=== PATIENT | male | born 1960 | race Caucasian/White ===

== ENCOUNTER → 2018-06-11 09:59 | Outpatient (CLI) | payer BC, SELFPAY ==
[2018-06-11 11:36] LABS: ALT 79 U/L (12-78); AST 42 U/L (15-37); CREATININE 1.04 mg/dL (0.70-1.30); Glucose 81 mg/dL (70-100)
== END ==
PROVIDERS: PCP Family Medicine; Visit Provider Family Medicine
DX: I10 Essential (primary) hypertension (principal); E74.39 Other disorders of intestinal carbohydrate absorption; K76.0 Fatty (change of) liver, not elsewhere classified
CPT/HCPCS: 36415; 82947; 82565; 84132; 84450; 84460

== ENCOUNTER → 2018-06-19 00:52 | Outpatient (CLI) | payer BC, SELFPAY ==
--- NOTE | 2018-06-19 07:30 | MERGE_ITS ---
*[facility]* *[facility]* [address] [place] [address] Date of study: 06/19/2018 Transthoracic Echocardiography M-mode, complete 2D, complete spectral Doppler, and color Doppler *STUDY CONCLUSIONS* Summary: 1. Left ventricle: The cavity size was dilated. Wall thickness was increased in a pattern of mild LVH. Systolic function was normal. The estimated ejection fraction was 55-60%. Wall motion was normal; there were no regional wall motion abnormalities. 2. Right ventricle: The cavity size was normal. Systolic function was normal. 3. Aortic valve: Possibly bicuspid (fusion of non-coronary and right coronary cups); moderately thickened, mildly calcified leaflets. Transvalvular velocity was increased. There was mild stenosis. There was moderate to severe regurgitation directed towards the mitral anterior leaflet. VTI ratio of LVOT to aortic valve: 0.41. Valve area (VTI): 1.5cm^2. 4. Aortic root: The aortic root was mildly dilated (41 mm). 5. Ascending aorta: The ascending aorta was mildly dilated (40 mm). 6. Inferior vena cava: The vessel was normal in size. The respirophasic diameter changes were in the normal range (greater than or equal to 50%), consistent with normal central venous pressure. *PATIENT PRESENTATION* Height: 172.7cm ((68in) ) S/D Pressure: 165 / 69 Weight: 92.5kg ((203.6lb) ) BSA: 2.13m^2 Test start time: 07:40 AM. Test stop time: 08:40 AM. PERFORMING Unknown ORDERING Merrill Hernandez REFERRING Merrill Hernandez PERFORMING [facility] CHARTER COACH DRIVER Lanie Barcenas, RT (R)(CT), [facility] *PROCEDURE DATA* Procedure information: The patient was identified by two identifiers. This study was interpreted by [facility]. Pertinent images and digital data are archived for permanent storage and are available for subsequent review. Comparison was made to the study of May 2016. Study status: Routine. Transthoracic echocardiography. M-mode, complete 2D, complete spectral Doppler, and color Doppler. A Transthoracic Echocardiogram was performed. Scanning was performed from the parasternal, apical, subcostal, and suprasternal notch acoustic windows. Images were obtained using an [id number] cardiac ultrasound machine. Image quality was adequate. Study completion: The patient tolerated the procedure well. There were no complications. History: PMH: Aortic root dilation. AI. *CARDIAC ANATOMY* Left ventricle: The cavity size was dilated. Wall thickness was increased in a pattern of mild LVH. Systolic function was normal. The estimated ejection fraction was 55-60%. Wall motion was normal; there were no regional wall motion abnormalities. Aortic valve: Possibly bicuspid (fusion of non-coronary and right coronary cups); moderately thickened, mildly calcified leaflets. Mobility was not restricted. Doppler: Transvalvular velocity was increased. There was mild stenosis. There was moderate to severe regurgitation directed towards the mitral anterior leaflet. VTI ratio of LVOT to aortic valve: 0.41. Valve area (VTI): 1.5cm^2. Indexed valve area (VTI): 0.7cm^2/m^2. Peak velocity ratio of LVOT to aortic valve: 0.4. Valve area (Vmax): 1.5cm^2. Indexed valve area (Vmax): 0.7cm^2/m^2. Mean velocity ratio of LVOT to aortic valve: 0.42. Valve area (Vmean): 1.6cm^2. Indexed valve area (Vmean): 0.7cm^2/m^2. Mean gradient (S): 18mm Hg. Peak gradient (S): 33.3mm Hg. Aorta: Aortic root: The aortic root was mildly dilated (41 mm). Ascending aorta: The ascending aorta was mildly dilated (40 mm). Mitral valve: Mildly calcified annulus. Mildly thickened leaflets. Mobility was not restricted. Doppler: Transvalvular velocity was within the normal range. There was no evidence for stenosis. There was no significant regurgitation. Valve area by pressure half-time: 3.1cm^2. Indexed valve area by pressure half-time: 1.5cm^2/m^2. Peak gradient (D): 4.6mm Hg. Left atrium: The atrium was at the upper limits of normal in size. Right ventricle: The cavity size was normal. Systolic function was normal. Pulmonic valve: Poorly visualized. Doppler: Transvalvular velocity was within the normal range. There was no evidence for stenosis. There was trivial regurgitation. Tricuspid valve: Structurally normal valve. Doppler: Transvalvular velocity was within the normal range. There was no evidence for stenosis. There was no significant regurgitation. Pulmonary artery: Poorly visualized. Systolic pressure could not be accurately estimated. Right atrium: The atrium was at the upper limits of normal in size. Pericardium: There was no pericardial effusion. Systemic veins: Inferior vena cava: The vessel was normal in size. The respirophasic diameter changes were in the normal range (greater than or equal to 50%), consistent with normal central venous pressure. Baseline ECG: Bradycardia. Measurements Left ventricle Value Reference LV ID, ED, PLAX (H) 6.4 cm 3.5 - 6.0 LV ID, ES, PLAX (H) 4.3 cm 2.1 - 4.0 LV PW thickness, ED, PLAX 1.2 cm LV end-diastolic volume, 1-p A2C 109 ml LV ejection fraction, 1-p A2C 59 % LV end-diastolic volume, 1-p A4C 111 ml LV ejection fraction, 1-p A4C 60 % LV e', lateral 0.071 m/sec LV E/e', lateral 15 LV e', medial 0.06 m/sec LV E/e', medial 18 LV e', average 0.066 m/sec LV E/e', average 16 Ventricular septum Value Reference IVS thickness, ED, PLAX 1.2 cm LVOT Value Reference LVOT ID, A-P 2.2 cm LVOT area 3.7 cm^2 LVOT peak velocity, S 1.16 m/sec LVOT mean velocity, S 0.85 m/sec LVOT VTI, S 29.1 cm LVOT peak gradient, S 5.4 mm Hg LVOT mean gradient, S 3.2 mm Hg Stroke volume (SV), LVOT DP 108 ml Stroke index (SV/bsa), LVOT DP 50 ml/m^2 Aortic valve Value Reference Aortic valve peak velocity, S 2.9 m/sec Aortic valve mean velocity, S 1.99 m/sec Aortic valve VTI, S 70.1 cm Aortic mean gradient, S 18 mm Hg Aortic peak gradient, S 33.3 mm Hg VTI ratio, LVOT/AV 0.41 Aortic valve area, VTI 1.5 cm^2 Velocity ratio, peak, LVOT/AV 0.4 Aortic valve area, peak velocity 1.5 cm^2 Velocity ratio, mean, LVOT/AV 0.42 Aortic valve area, mean velocity 1.6 cm^2 Aortic valve area/bsa, mean velocity 0.7 cm^2/m^2 Aortic regurg deceleration 297 cm/s^2 Aortic regurg pressure half-time 449 ms Aorta Value Reference Aortic root ID, ED 4.1 cm Ascending aorta ID, A-P, S 4.0 cm RVOT Value Reference RVOT VTI, S 13.1 cm Left atrium Value Reference LA ID, A-P, ES 3.4 cm LA ID/bsa, A-P 1.6 cm/m^2 <=2.2 LA area, ES, A4C 22 cm^2 8.8 - 23.4 LA area, ES, A2C 23 cm^2 LA volume/bsa, ES, 1-p A4C 32 ml/m^2 LA volume, ES, 2-p 65 ml LA volume/bsa, ES, 2-p 31 ml/m^2 LA/aortic root ratio 0.84 Mitral valve Value Reference Mitral E-wave peak velocity 1.08 m/sec Mitral A-wave peak velocity 0.98 m/sec Mitral deceleration time (H) 243 ms 150 - 230 Mitral pressure half-time 70 ms Mitral peak gradient, D 4.6 mm Hg Mitral E/A ratio, peak 1.1 Mitral valve area, PHT, DP 3.1 cm^2 Pulmonary veins Value Reference Pulmonary vein peak velocity, S 0.51 m/sec Pulmonary vein peak velocity, D 0.33 m/sec Pulmonary vein velocity ratio, peak, 1.53 S/D Pulmonary vein A-wave reversal peak 0.4 m/sec velocity Tricuspid valve Value Reference Tricuspid regurg peak velocity 2.5 m/sec Tricuspid peak RV-RA gradient 25.2 mm Hg Right atrium Value Reference RA area, ES, A4C 19.2 cm^2 8.3 - 19.5 Legend: (L) and (H) tab values outside specified reference range. I have personally reviewed the images and have reviewed and edited the reported findings. Electronically signed by Hamida Kent 06/19/2018 11:03
== END ==
PROVIDERS: PCP Family Medicine; Visit Provider Family Medicine
DX: I77.819 Aortic ectasia, unspecified site (principal); I06.2 Rheumatic aortic stenosis with insufficiency
CPT/HCPCS: 93306

== ENCOUNTER 2018-10-07 14:45 | Emergency (ER) | payer BC, SELFPAY ==
[2018-10-07 14:56] VITALS: BP 179/64; PULSE 45; RESP 20; TEMP 36.4; O2SAT 96
--- NOTE | 2018-10-07 15:17 | DI.CT_ITS ---
SYMPTOM/DIAGNOSIS: RT FLANK/RLQ ABD PAIN, R/O KIDNEY STONE RENAL COLIC CT: In the lower thorax bronchiectasis is identified. Incidental note is made of cardiomegaly. There is calcification in the aortic valve. There is no definite pleural effusion. There is no pericardial effusion. The liver is normal. The gallbladder is decompressed. The pancreas, spleen and adrenals are normal. There is a 5.3 x 4 mm calculus in the mid right ureter causing dilatation of the right ureter and the right collecting system. The right kidney is edematous. There are scattered diverticulum in the colon. There is no diverticulitis. There is nothing to suggest an acute appendix. There is no free air or free fluid in the intraperitoneal space. The bladder wall is somewhat thickened at 8 mm which is nonspecific regarding the possibility of inflammation or infection. The findings are likely on the basis of suboptimal distension. Correlation with the patient's clinical status is recommended,. There is no acute bony abnormality. The soft tissues are unremarkable. The abdominal aorta is intact with no evidence of an aneurysm. There are peripancreatic nodes measuring up to 3.7 x 1.1 cm The spleen is intact. A small splenule is identified. SUMMARY: A 5.3 x 4 mm right ureteral calculus is demonstrated with resultant right hydronephrosis. Note is made of obstructive changes involving the right kidney as well where there is evidence of nephric edema. Note is made of a peripancreatic lymph node measuring up to 3.7 x 1.1 cm. In addition, smaller peripancreatic lymph nodes are evident. The bladder wall is thickened. The finding is nonspecific and could represent inflammation or infection or unlikely but possible neoplastic or neurogenic bladder. Urology consult would be appropriate for further review of this patient.
--- NOTE | 2018-10-07 15:20 | W.ED.GENAD ---
Discharge Plan Disposition Patient Disposition: HOME Condition: Improving Discharge Details Chief Complaint: Abd Prob Clinical Impression: Right nephrolithiasis Primary Care Provider: Merrill Hernandez ED Provider: Mitzi Erickson Home Meds and New Rx's Prescriptions: New tamsulosin [Flomax] 0.4 mg capsule 0.4 mg PO DAILY Qty: 10 RF: 0 ondansetron 4 mg tablet,disintegrating 4 mg PO TID PRN (Reason: nausea and vomiting) Qty: 6 RF: 0 oxycodone 5 mg tablet 5 mg PO Q6H PRN (Reason: pain) Qty: 10 RF: 0 Continued aspirin [Aspirin Low-Strength] 81 MG tablet,chewable 1 tab PO DAILY RF: 0 cholecalciferol (vitamin D3) 2,000 UNIT tablet 2,000 unit PO DAILY RF: 0 omega-3 fatty acids-fish oil [Fish Oil] 1 EACH capsule 2 cap PO DAILY Qty: 60 RF: 5 pravastatin [Pravachol] 20 MG tablet 1 tab PO DAILY Qty: 90 RF: 3 Metoprolol Succinate [Toprol Xl] 50 MG TAB.ER.24H 50 mg PO DAILY Qty: 90 RF: 4 losartan-hydrochlorothiazide [Hyzaar] 1 EACH tablet 1 tab PO DAILY Qty: 90 RF: 3 Discharge Instructions Instructions: Kidney Stones (ED) Additional Instructions: Drink plenty of water. Take Motrin and Tylenol as needed and directed for pain. Take the oxycodone for pain not relieved with Motrin or Tylenol. Take the Flomax daily. Take the Zofran as needed and directed for any nausea or vomiting. You will receive a call from urology regarding follow-up in the next week. Return immediately to the emergency department any worsening or new concerning symptoms. Referrals: Tex De Leon MD [ [facility] STAFF PHYSICIAN] - Discharge Data Discharge Physician: Mitzi Erickson Medical Decision Making 58yo M w/ a h/o HTN and HLD w/ sudden onset R flank and RLQ abd pain. Nausea and dry heaving. BP hypertensive, HR 45. Afebrile. Pt on beta jassi. Suspect HTN due to pain. Pt appears significantly uncomfortable. Suspect kidney stone. May also be appendicitis, cholecystitis, SBO. Will place an IV, bolus ivf, toradol, zofran, labs, UA and CT renal colic and reassess. 1550 -- Pt feels better, pain improved after toradol. Pt to go to CT soon. 1615 -- Pain returned but now improved again. Dose of morphine was given. 1715 -- labs and imaging reviewed. Normal white blood cell count and creatinine. Potassium 3.2, which was repleted. Troponin negative. Urinalysis notes trace blood but no infection. CT notes a 5.3 x 4 mm right ureteral calculus causing dilation of the right ureter and right collecting system as well as an edematous kidney. Bladder wall is also measuring 8 mm which may represent inflammation or infection. CT also noted a 3 x 1 cm peripancreatic node. Pt was informed of all the CT findings and instructed to f/u with pcp regarding peripancreatic node as indicated. 1730 --results discussed with Dr. De Leon he recommends follow-up within 1 week. Recommends Flomax. Patient placed on urology f/u list. Patient feels much better and feels good to go home. Patient instructed to drink plenty of fluids. We will send home with oxycodone and Zofran tabs as well as prescriptions. Patient instructed to return here immediately with any concerns. Medical Records Medical records reviewed: Yes I reviewed the patient's medical records. Imaging Data Radiologic Study: Radiologist's impression: CT Abdomen and Pelvis Without Contrast EXAM DATE/TIME: 10/07/2018 3:20 PM FINDINGS: Lower thorax: Bronchiectasis There is calcification of the aortic valve annulus. ABDOMEN: Liver: Normal. No mass. Gallbladder and bile ducts: The gallbladder is decompressed Pancreas: Normal. No ductal dilation. Spleen: Normal. No splenomegaly. Adrenals: Normal. No mass. Kidneys and ureters: 5.3 x4 millimeter mid RIGHT ureteral calculus causes dilatation of the RIGHT ureter, and RIGHT collecting system. The RIGHT kidney is edematous. Stomach and bowel: Scattered diverticula of the colon. No diverticulitis Appendix: No evidence of appendicitis. PELVIS: Bladder: The bladder wall measures up to 8 mm. This is nonspecific and may represent inflammation or infection. Neoplastic process and neurogenic bladder are included in the differential. Reproductive: Unremarkable as visualized. ABDOMEN and PELVIS: Intraperitoneal space: Normal. No free air. No significant fluid collection. Bones/joints: No acute fracture. No dislocation. Soft tissues: Unremarkable. Vasculature: Normal. No abdominal aortic aneurysm. Lymph nodes: Peripancreatic node measures 3.7 x 1.1 cm (2:41). Additional smaller peripancreatic nodes. IMPRESSION: 1. 5.3 x4 millimeter mid RIGHT ureteral calculus causes dilatation of the RIGHT ureter, and RIGHT collecting system. The RIGHT kidney is edematous. 2. Peripancreatic node measures 3.7 x 1.1 cm (2:41). Additional smaller peripancreatic nodes. Recommend further evaluation 3. The bladder wall measures up to 8 mm. This is nonspecific and may represent inflammation or infection. Neoplastic process and neurogenic bladder are included in the differential. Recommend urology consult. Lab Data Lab results reviewed: Yes I reviewed the patient's lab results. Laboratory Tests Range/Units 10/07/18 10/07/18 10/07/18 15:30 15:30 16:55 WBC (4.4-10.8) k/cumm 9.79 RBC (4.50-6.00) m/cumm 5.43 Hgb (13.5-17.5) g/dL 16.5 Hct (40.0-50.0) % 47.5 MCV (80-95) fL 87.5 MCH (27.0-33.0) pg 30.4 MCHC (32.0-36.0) g/dL 34.7 RDW (11.8-14.1) % 14.5 H Plt Count (130-400) x1000/uL 229 MPV (8.0-11.0) fL 9.6 Immature Gran % 0.2 Neutrophils % 54.7 Lymphocytes % 30.2 Monocytes % 11.7 Eosinophils % 2.9 Basophils % 0.3 Absolute Neutrophils (1.2-6.7) k/cumm 5.35 Absolute Lymphocytes (1.2-3.4) k/cumm 2.96 Absolute Monocytes (0.11-0.7) k/cumm 1.15 H Absolute Eosinophils (0.0-0.7) k/cumm 0.28 Absolute Basophils (0.0-0.2) k/cumm 0.03 Sodium (136-145) mmol/L 141 Potassium (3.5-5.1) mmol/L 3.2 L Chloride (98-107) mmol/L 103 Carbon Dioxide (21.0-32.0) mmol/L 26.6 Anion Gap (3-11) mmol/L 11.4 H BUN (7-18) mg/dL 22 H Creatinine (0.70-1.30) mg/dL 0.99 Estimated GFR/1.73 m2 (mL/min/1.73m2) >= 60.00 Glucose (70-100) mg/dL 190 H Calcium (8.5-10.1) mg/dL 9.4 Magnesium (1.8-2.4) mg/dL 2.0 Total Bilirubin (0.2-1.0) mg/dL 0.9 AST (15-37) U/L 49 H ALT (12-78) U/L 98 H Alkaline Phosphatase (46-116) U/L 76 Troponin I (0.00-0.06) ng/mL < 0.02 Total Protein (6.4-8.2) g/dL 7.7 Albumin (3.4-5.0) g/dL 3.7 Urine Color (Yellow) Yellow Urine Clarity Clear Urine pH (5-8) 5.5 Ur Specific [place] (1.005-1.025) >= 1.030 H Urine Protein (Negative) mg/dL Negative Urine Ketones (Negative) mg/dL Trace H Urine Blood (Negative) Trace-intact H Urine Nitrite (Negative) Negative Urine Bilirubin (Negative) Negative Urine Urobilinogen (Up TO 0.2) EU/dL 0.2 Ur Leukocyte Esterase (Negative) Negative Urine RBC (0-2) 0-2 Urine WBC (0-5) HPF Negative Ur Epithelial Cells (Negative) HPF Negative Urine Crystals (Negative) HPF Negative Urine Bacteria (Negative) HPF Rare Urine Casts (Negative) LPF Negative Urine Mucus (Negative) Negative Urine Other (Negative) Negative Ur Culture Indicated? No Urine Glucose (Negative) mg/dL Negative HPI General Mode of arrival: ambulatory. Date/Time Provider Initiated Documentation: 10/07/18 15:02. Limitations to Documentation: no limitations. Information obtained by: patient. HPI Narrative: Pt is a 58yo M w/ a h/o HTN/HLD who presents to the ED w/ a c/o sudden onset of R flank and RLQ abdominal pain since 90 minutes ago. Pt states he was sitting watching tv when the pain started. He states the pain is constant, sharp, aching and 10/10. Pt did not take anything for pain. Pt also admits to nausea and dry heaving 4 times. He states he has chronic diarrhea for years and that his last bowel movement was 3 hours ago and within normal limits. He denies fever, chest pain, sob, urinary symptoms. Denies known h/o kidney stones. Related Data Home Medications Medication Instructions Recorded Confirmed aspirin [Aspirin Low-Strength] 1 tab PO DAILY 02/05/13 10/07/18 cholecalciferol (vitamin D3) 2,000 unit PO DAILY 05/09/16 10/07/18 omega-3 fatty acids-fish oil [Fish 2 cap PO DAILY #60 tab-cap 05/09/16 10/07/18 Oil] pravastatin [Pravachol] 1 tab PO DAILY #90 tab 04/09/18 10/07/18 losartan-hydrochlorothiazide 1 tab PO DAILY #90 tab NS 06/14/18 10/07/18 [Hyzaar] ondansetron 4 mg PO TID PRN #6 tab 10/07/18 oxycodone 5 mg PO Q6H PRN #10 tab 10/07/18 tamsulosin [Flomax] 0.4 mg PO DAILY #10 cap 10/07/18 Previous Rx's Medication Instructions Recorded pravastatin [Pravachol] 1 tab PO DAILY #90 tab 04/09/18 losartan-hydrochlorothiazide 1 tab PO DAILY #90 tab NS 06/14/18 [Hyzaar] ondansetron 4 mg PO TID PRN #6 tab 10/07/18 oxycodone 5 mg PO Q6H PRN #10 tab 10/07/18 tamsulosin [Flomax] 0.4 mg PO DAILY #10 cap 10/07/18 Allergies Allergy/AdvReac Type Severity Reaction Status Date / Time lisinopril AdvReac Mild COUGH Unverified 06/11/18 09:26 doxycycline AdvReac Unknown NAUSEA Unverified 06/11/18 09:26 General Stated Complaint: Abd Prob ANGEL: 3 Review of Systems Review of Systems All systems reviewed & are unremarkable except as noted in HPI and below Constitutional Reports as per HPI, Denies chills and Denies fever(s) Eyes Denies blurry vision ENT Denies dizziness, Denies sore throat and Denies throat swelling Cardiovascular Denies chest pain and Denies dyspnea Respiratory Denies dyspnea Gastrointestinal Reports abdominal pain, Reports diarrhea (chronic, no change), Reports nausea and Denies vomiting Genitourinary Denies hematuria, Denies dysuria, Reports flank pain, Denies testicular mass, Denies testicular pain, Denies urinary frequency and Denies urinary urgency Musculoskeletal Reports back pain and Denies numbness Integumentary/Breasts Denies lesions and Denies rash Neurologic Denies dizziness and Denies numbness Allergic/Immunologic Denies throat swelling [facility] Family History Mother No problems noted. Father Heart disease Sister No problems noted. Sister No problems noted. Brother No problems noted. Grandfather Heart disease Stroke Grandmother No problems noted. Other Depression Exam Const General: cooperative, healthy appearing and no acute distress HENMT Head: normal to inspection Face and sinus: normal facial exam Eyes General: appearance normal, both eyes and all related structures EOM: EOM intact bilaterally Neck Neck: normal visual inspection and No submandibular swelling Lymphatic: no lymphadenopathy noted Chest Chest: normal inspection of the chest and no tenderness Resp Effort & Inspection: normal respiratory effort and able to speak in complete sentences Auscultation: clear to auscultation bilaterally Cardio Rate: regular rate Rhythm: regular rhythm GI Inspection: distended (states this is his baseline, no change) and obesity Palpation: no hernias, no masses, not rigid and nontender Auscultation: normal bowel sounds Male General Exam: Yes normal external exam Scrotum: scrotum normal Testes: normal, no testicular mass, no testicular swelling and no testicular tenderness Back/Spine/Pelvis Back: no CVA tenderness Thoracic/Lumbar Spine: thoracic and lumbar spine normal to inspection Pelvis: no pain with anterior-posterior compression Skin General skin exam: no rashes or lesions noted Neuro General: alert, awake and oriented x3 Cognition: normal cognition Speech: speech normal Motor: muscle tone normal throughout Sensory Exam: no sensory deficits noted Extrem General: normal to inspection, full ROM, normal capillary refill, no calf tenderness bilaterally and no edema Psych Appearance: grossly normal Mental Status: mental status grossly normal Speech and Movement: speech and movement normal Affect: normal affect Course Vital Signs Temperature 97.5 F L 10/07/18 14:56 Pulse 45 L 10/07/18 14:56 Respiratory Rate 20 10/07/18 14:56 Blood Pressure 179/64 H 10/07/18 14:56 Pulse Oximetry 96 10/07/18 14:56 Temperature 97.5 F L 10/07/18 14:56 Temperature Source Skin 10/07/18 14:56 Pulse 45 L 10/07/18 14:56 Respiratory Rate 20 10/07/18 14:56 Blood Pressure 179/64 H 10/07/18 14:56 Blood Pressure Position Sitting 10/07/18 14:56 Pulse Oximetry 96 10/07/18 14:56 Oxygen Delivery Method Room Air 10/07/18 14:56 Oxygen Flow Rate 0 10/07/18 14:56 Pain Level 9 10/07/18 14:56
[2018-10-07] MEDS: Ketorolac 30 MG/ML VIAL IVP (15:28)
[2018-10-07] MEDS: Ondansetron 4 MG/2 ML VIAL IVP (15:29)
[2018-10-07] MEDS: Normal Saline 1,000 ML 1000 ML IV (15:29)
[2018-10-07 15:45] LABS: Abs Immature Grans 0.02 k/cumm (0.0-0.09); Absolute Basophil Count 0.03 k/cumm (0.0-0.2); Absolute Eosinophil Count 0.28 k/cumm (0.0-0.7); Absolute Lymphocyte Count 2.96 k/cumm (1.2-3.4); Absolute Monocyte Count 1.15 k/cumm (0.11-0.7); Absolute Neutrophil Count 5.35 k/cumm (1.2-6.7); Basophils % 0.3; Eosinophils % 2.9; HCT 47.5 % (40.0-50.0); HGB 16.5 g/dL (13.5-17.5); Immature Grans % 0.2; Lymphocytes % 30.2; Mean Corp. HGB Concentration 34.7 g/dL (32.0-36.0); Mean Corpuscular Hemoglobin 30.4 pg (27.0-33.0); Mean Corpuscular Volume 87.5 fL (80-95); Mean Platelet Volume 9.6 fL (8.0-11.0); Monocytes % 11.7; Neutrophils % 54.7; Platelet Count 229 x1000/uL (130-400); RBC 5.43 m/cumm (4.50-6.00); RBC Distribution Width 14.5 % (11.8-14.1); White Blood Cell Count 9.79 k/cumm (4.4-10.8)
[2018-10-07 16:01] LABS: ALT 98 U/L (12-78); AST 49 U/L (15-37); Albumin 3.7 g/dL (3.4-5.0); Alkaline Phosphatase 76 U/L (46-116); Anion Gap 11.4 mmol/L (3-11); BUN 22 mg/dL (7-18); Bilirubin, Total 0.9 mg/dL (0.2-1.0); CO2 26.6 mmol/L (21.0-32.0); CREATININE 0.99 mg/dL (0.70-1.30); Calcium 9.4 mg/dL (8.5-10.1); Chloride 103 mmol/L (98-107); Glucose 190 mg/dL (70-100); Potassium 3.2 mmol/L (3.5-5.1); Sodium 141 mmol/L (136-145); Total Protein 7.7 g/dL (6.4-8.2)
[2018-10-07 16:03] LABS: Troponin I < 0.02 ng/mL (0.00-0.06)
[2018-10-07 16:17] VITALS: BP 175/60; PULSE 58; RESP 14; O2SAT 95
--- NOTE | 2018-10-07 16:18 | NUR.NOTE ---
pain improved , nausea improved, will contoinue to moniotr Nursing Note:
[2018-10-07] MEDS: Potassium Chloride 20 MEQ TABCR 40 MEQ PO (16:55)
[2018-10-07 17:00] LABS: Bilirubin Negative (Negative); Blood Trace-intact (Negative); Clarity Clear; Glucose Negative (Negative); Ketones Trace mg/dL (Negative); Leukocyte Esterase Negative (Negative); Nitrite Negative (Negative); Specific Gravity >= 1.030 (1.005-1.025); Urobilinogen 0.2 EU/dL (Up TO 0.2); pH 5.5 (5-8)
--- NOTE | 2018-10-07 17:06 | DI.VRAD_ITS ---
EXAM: CT Abdomen and Pelvis Without Contrast EXAM DATE/TIME: 10/07/2018 3:20 PM CLINICAL HISTORY: 58 years old, male; Pain; Abdominal pain; Localized; Right lower quadrant (rlq); Patient HX: R flank pain/rlq pain; Additional info: R/O kidney stone, appendicitis TECHNIQUE: Axial computed tomography images of the abdomen and pelvis without contrast. Coronal and sagittal reformatted images were created and reviewed. COMPARISON: No relevant prior studies available. FINDINGS: Lower thorax: Bronchiectasis There is calcification of the aortic valve annulus. ABDOMEN: Liver: Normal. No mass. Gallbladder and bile ducts: The gallbladder is decompressed Pancreas: Normal. No ductal dilation. Spleen: Normal. No splenomegaly. Adrenals: Normal. No mass. Kidneys and ureters: 5.3 x4 millimeter mid RIGHT ureteral calculus causes dilatation of the RIGHT ureter, and RIGHT collecting system. The RIGHT kidney is edematous. Stomach and bowel: Scattered diverticula of the colon. No diverticulitis Appendix: No evidence of appendicitis. PELVIS: Bladder: The bladder wall measures up to 8 mm. This is nonspecific and may represent inflammation or infection. Neoplastic process and neurogenic bladder are included in the differential. Reproductive: Unremarkable as visualized. ABDOMEN and PELVIS: Intraperitoneal space: Normal. No free air. No significant fluid collection. Bones/joints: No acute fracture. No dislocation. Soft tissues: Unremarkable. Vasculature: Normal. No abdominal aortic aneurysm. Lymph nodes: Peripancreatic node measures 3.7 x 1.1 cm (2:41). Additional smaller peripancreatic nodes. IMPRESSION: 1. 5.3 x4 millimeter mid RIGHT ureteral calculus causes dilatation of the RIGHT ureter, and RIGHT collecting system. The RIGHT kidney is edematous. 2. Peripancreatic node measures 3.7 x 1.1 cm (2:41). Additional smaller peripancreatic nodes. Recommend further evaluation 3. The bladder wall measures up to 8 mm. This is nonspecific and may represent inflammation or infection. Neoplastic process and neurogenic bladder are included in the differential. Recommend urology consult Dictated and Authenticated by: Gianna Reveles MD. Ordering:[id number] Cartagena MD
[2018-10-07 17:08] LABS: Bacteria Rare HPF (Negative); Epithelial Cells Negative HPF (Negative); Other Cells Negative (Negative); RBC 0-2 (0-2); WBC Negative HPF (0-5)
[2018-10-07 17:09] LABS: C & S Indicated? No; Casts Negative LPF (Negative); Crystals Negative HPF (Negative); Mucus Negative (Negative)
[2018-10-07 17:36] VITALS: BP 187/73; PULSE 66; RESP 16; O2SAT 94
--- NOTE | 2018-10-07 17:37 | NUR.NOTE ---
patient medicated per MD order, will continue to monitor Nursing Note:
[2018-10-07] MEDS: MORPHine 10 MG/ML VIAL 4 MG IVP (17:51)
[2018-10-07] MEDS: Tamsulosin 0.4 MG CAPCR PO (18:40)
[2018-10-07] MEDS: oxyCODONE 5 MG TAB 15 MG PO (18:41)
[2018-10-07] MEDS: Ondansetron O.D.T. 4 MG TABEF PO (18:42)
--- NOTE | 2018-10-07 18:43 | NUR.NOTE ---
patient medicated per MD order, home meds sent home with patient Nursing Note:
--- NOTE | 2018-10-07 18:57 | NUR.NOTE ---
IV dc'd, patient received discharge and follow up instruction Nursing Note:
== END 2018-10-07 18:57 | disposition home or self-care (01) ==
PROVIDERS: Emergency Provider Physician Assistant; PCP Family Medicine
DX: N20.1 Calculus of ureter (principal); I10 Essential (primary) hypertension
CPT/HCPCS: 80053; 96361; 96374; 96375; 99284; 74176; 81003; 81015; 83735; 84484; 85025; J1885; J2270; J2405

== ENCOUNTER 2018-10-24 16:24 | Outpatient (REF) | payer BC, SELFPAY ==
[2018-10-24 17:14] LABS: Bilirubin Negative (Negative); Blood Trace-intact (Negative); Clarity Clear; Glucose Negative (Negative); Ketones Negative (Negative); Leukocyte Esterase Negative (Negative); Nitrite Negative (Negative); Urobilinogen 0.2 EU/dL (Up TO 0.2); pH 6.5 (5-8)
[2018-10-24 17:26] LABS: Bacteria Rare HPF (Negative); Crystals Negative HPF (Negative); Epithelial Cells Rare HPF (Negative); Mucus Negative (Negative); WBC 0-2 HPF (0-5)
[2018-10-24 17:27] LABS: C & S Indicated? C&S Done As Ordered
== END 2018-10-24 16:44 ==
LOC: LBN 16:24
PROVIDERS: PCP Family Medicine; Visit Provider Nurse Practitioner Gerontology
DX: R31.9 Hematuria, unspecified (principal)
CPT/HCPCS: 81003; 81015; 87086

== ENCOUNTER 2018-11-25 00:46 | Outpatient (CLI) | payer BC, SELFPAY ==
--- NOTE | 2018-11-25 06:40 | DI.CT_ITS ---
SYMPTOM/DIAGNOSIS: LYMPH NODES AROUND PANCREAS ON U/S, ENLARGED LYMPH NODES R59.9 CT ABDOMEN AND PELVIS: Comparison is made with 07 Oct 2018. There is respiratory motion at the lung bases. The heart is enlarged, unchanged. The liver shows fatty infiltration. The gallbladder, spleen and pancreas are unremarkable. The previous exam mentioned lymph nodes around the head of the pancreas. These nodes have decreased in size when compared with the previous exam, consistent with reactive lymph nodes. The appendix appears normal. There is mild diverticulosis but no evidence of diverticulitis. Prostate calcifications are seen. The bladder is unremarkable. The aorta is normal in diameter. IMPRESSION: Interval decrease in size of the previously noted lauren-pancreatic lymph nodes, consistent with reactive lymph nodes. No acute abnormality is identified on today's exam.
[2018-11-25] MEDS: Breeza Beverage 473 ML BTL PO ×2 (06:57→06:58)
[2018-11-25] MEDS: Omnipaque 350 MG/ML 50 ML BTL PO (06:58)
[2018-11-25 07:47] LABS: CREATININE 1.05 mg/dL (0.70-1.30)
[2018-11-25 07:51] LABS: ALT 81 U/L (12-78)
[2018-11-25] MEDS: Omnipaque 350 MG/ML 100 ML BTL IJ (08:07)
== END 2018-11-25 01:06 ==
PROVIDERS: PCP Family Medicine; Visit Provider Family Medicine
DX: R59.0 Localized enlarged lymph nodes (principal); I51.7 Cardiomegaly; K57.90 Diverticulosis of intestine, part unspecified, without perforation or abscess without bleeding; E78.5 Hyperlipidemia, unspecified
CPT/HCPCS: 36415; 74177; 82565; 84460; J3490; Q9967

== ENCOUNTER 2019-06-17 09:59 | Outpatient (CLI) | payer BC, SELFPAY ==
[2019-06-17 13:31] LABS: Anion Gap 9.8 mmol/L (3-11); BUN 21 mg/dL (7-18); CO2 29.2 mmol/L (21.0-32.0); CREATININE 1.01 mg/dL (0.70-1.30); Calcium 9.2 mg/dL (8.5-10.1); Calculated LDL 130 mg/dL; Chloride 103 mmol/L (98-107); Cholesterol 192 mg/dL (50-200); Glucose 95 mg/dL (70-100); HDL Cholesterol 42 mg/dL (40-60); Potassium 4.2 mmol/L (3.5-5.1); Sodium 142 mmol/L (136-145); Triglyceride 102 mg/dL (30-150)
[2019-06-18 10:25] LABS: PSA, Screening 0.6 ng/ml (0-4.5)
== END 2019-06-17 10:19 ==
PROVIDERS: PCP Family Medicine; Visit Provider Family Medicine
DX: E78.00 Pure hypercholesterolemia, unspecified (principal); I10 Essential (primary) hypertension; Z12.5 Encounter for screening for malignant neoplasm of prostate
CPT/HCPCS: 36415; 80048; 80061; 83721; 84153

== ENCOUNTER 2019-08-06 01:45 | Outpatient (CLI) | payer BC, SELFPAY ==
--- NOTE | 2019-08-06 10:25 | DI.US_ITS ---
APPROVED REPORT EXAM: Comprehensive 2D, Doppler, and color-flow Echocardiogram Patient Location: Out-Patient Indoor Landscape Architect: L[facility] Barcenas [facility] ([facility]) Indications: aortic regurgitation non rheumatic i35.1 Left Ventricle Left ventricle is mildly dilated (LVEDD=6.1cm). The left ventricular systolic function is normal. The left ventricular ejection fraction is within the normal range. Mild concentric left ventricular hype rtrophy. There is normal LV segmental wall motion. Diastolic function is indeterminate LVEF is estima lázaro to be 55-60%. Right Ventricle The right ventricle is normal size. The right ventricular systolic function is normal. Atria Left atrium is dilated. The right atrium size is normal. Aortic Valve Aortic valve is possibly bicuspid. Aortic valve leaflets are mildly thickened. Mild aortic stenosis, mean gradient of 17.7mmHg Moderate to severe aortic regurgitation (reversal of flow in the descending aorta, VC=7mm) Mitral Valve There is mild mitral annular calcification. Mitral valve leaflets are mildly thickened. No evidence o f mitral valve stenosis. Mild mitral regurgitation. Tricuspid Valve The tricuspid valve is normal in structure. Trace tricuspid regurgitation. Unable to assesss PA press ure due to inadequate TR jet. Pulmonic Valve Pulmonic valve is not well visualized. Great Vessels Aortic root is dilated (3.9cm). The ascending aorta is mildly dilated. IVC is normal in size and rachna apses >50% with inspiration. Pericardium There is no pericardial effusion. 2D Dimensions IVSd 1.13 cm M: 0.6-1.2 LV EDV A2C 115.60 mL PWd 1.22 cm M: 0.6 - 1.2 LV EDV A4C 186.00 mL LVDd 6.14 cm M: 4.2 - 5.9 LA Volume Index A2C 26.96 mL/m2 LVDs 3.84 cm M: 2.5 - 4.0 LA Volume Index A4C 40.37 mL/m2 Aortic Root 4.10 cm M: 3.1 - 3.7 LA Volume Index Biplane 35.70 mL/m2 RA Area A4C 16.95 cm2 LA Area A4C 25.55 cm2 LVOT 2.21 cm (M/F) 1.5-2.5 LA Area A2C 19.29 cm2 Ascending Aorta 3.95 cm M: 2.6 - 3.4 EF AP4 54.78 % LVEF (Teich) 66.42 % EF AP2 59.78 % LVEF (Sam's) 53.69 % M: 52 - 72 EF BP 53.69 % LV Volume 109.32 mL M: 62 - 150 LV Volume Index 53.06 mL/m2 M: 34 - 74 FS 37.38 % LV Diastology E/A Ratio 1.4 MED E' 0.07 (<0.07 m/s) LV E/e MED 16.17 (>14) LAT E' 0.06 (<0.1 m/s) LV E/e LAT 17.01 (>14) Pulm Vein s 0.50 m/s PV S/D Ratio 1.22 Pulm Vein d 0.41 m/s Pulm Vein a 0.39 m/s Aortic Valve LVOT Area 3.84 cm2 LVOT Peak Arvin. 1.12 m/s LVOT Mean Arvin. 0.85 m/s JASON Vmax 0.00 m/s LVOT Peak Gr. 4.98 mmHg JASON Vmax Index 0.68 cm2/m2 LVOT Mean Gr. 3.11 mmHg JASON Mean Arvin. 0.00 m/s LVOT VTI 0.30 m JASON Mean Arvin. Index 0.80 cm2/m2 AoV Peak Arvin. 3.06 (0.5-1.3 m/s) AoV Mean Arvin. 1.97 m/s AO Peak GR. 37.35 mmHg AO Mean GR. 17.72 (<5 mmHg) AO VTI 0.70 (0.18-0.25 m) JASON (VTI) 1.40 (2.5-4.5 cm2) JASON (VTI) Index 0.79 cm/m2 Vena Contraca 0.67 cm Mitral Valve MV E Max Arvin. 1.07 (0.4-1.3 m/s) MV A Velocity 0.78 (0.4-1.3 m/s) E/A Ratio 1.37 MV Decel. Time 206.69 (160-240 msec) MV PHT 59.94 msec MVA PHT 3.67 cm2 Tricuspid Valve TR P. Velocity 2.04 m/s TV Regurg Vmax 2.04 m/s TR P. Gradient 16.60 mmHg Conclusion Left Ventricle : Left ventricle is mildly dilated (LVEDD=6.1cm). Mild concentric left ventricular hyp ertrophy. Diastolic function is indeterminate There is normal LV segmental wall motion. LVEF is estim ated to be 55-60%. Right Ventricle : The right ventricle is normal size. The right ventricular systolic function is norm al. Atria : Left atrium is dilated. The right atrium size is normal. Aortic Valve : Aortic valve is possibly bicuspid. Aortic valve leaflets are mildly thickened. Mild ao rtic stenosis, mean gradient of 17.7mmHg Moderate to severe aortic regurgitation (reversal of flow in the descending aorta, VC=7mm) Mitral Valve : There is mild mitral annular calcification. Mitral valve leaflets are mildly thickene d. Mild mitral regurgitation. No evidence of mitral valve stenosis. Tricuspid Valve : The tricuspid valve is normal in structure. Trace tricuspid regurgitation. Unable t o assesss PA pressure due to inadequate TR jet. Pulmonic Valve : Pulmonic valve is not well visualized. Great Vessels : Aortic root is dilated (3.9cm). IVC is normal in size and collapses >50% with inspira tion. Compared to echo dated 05/2018 the ventricle is now dilated in the setting of moderate to severe AI.
== END 2019-08-06 02:05 ==
PROVIDERS: PCP Family Medicine; Visit Provider Family Medicine
DX: I35.2 Nonrheumatic aortic (valve) stenosis with insufficiency (principal); I34.8 Other nonrheumatic mitral valve disorders; I10 Essential (primary) hypertension; E78.00 Pure hypercholesterolemia, unspecified
CPT/HCPCS: 93306

== ENCOUNTER 2019-12-01 08:46 | Outpatient (CLI) | payer BC, SELFPAY | END 2019-12-01 09:06 | PROVIDERS: PCP Family Medicine; Visit Provider Internal Medicine Cardiovascular Disease | DX: I35.1 Nonrheumatic aortic (valve) insufficiency (principal); I10 Essential (primary) hypertension | CPT/HCPCS: 93005; 93010 ==

== ENCOUNTER 2020-06-10 00:46 | Outpatient (CLI) | payer BC, SELFPAY ==
--- NOTE | 2020-06-10 07:30 | DI.US_ITS ---
APPROVED REPORT EXAM: Comprehensive 2D, Doppler, and color-flow Echocardiogram Patient Location: Out-Patient Electrical Installer: Melanie Costa RDCS (AE) Indications: Aortic Insufficiency Other Information Study Quality: Adequate Conclusion Left Ventricle : The left ventricle is normal size. The left ventricular systolic function is normal. The left ventricular ejection fraction is within the normal range. There is normal left ventricular wall thickness. There is normal LV segmental wall motion. The left ventricular diastolic function is normal. LVEF is 50-55%. Right Ventricle : The right ventricle is normal size. The right ventricular systolic function is norm al. The RVSP is 30.7 mmHg. Aortic Valve : Aortic valve is calcified. Aortic valve leaflets are sclerotic with decreased opening. Number of aortic valve leaflets could not be assessed. Mild aortic stenosis. Peak aortic valve gra dient is 32.6mmHg. Highest mean aortic valve gradient is 17.2mmHg. Calculated JASON by the continuity e quation is 1.6cm2. Moderate aortic regurgitation. There is no reversal of flow seen in the descendin g aorta. Mitral Valve : Mild mitral annular calcification. No evidence of mitral valve stenosis. Trace to mild mitral regurgitation. Great Vessels : The aortic root is normal in size. The ascending aorta is severely dilated (4cm). Aor tic arch is normal in caliber. The IVC collapses <50% with inspiration. Compared to echocardiogram from 08/06/2019: There is no significant change. Today the left ventricle measures within the normal range. Wall motion Left Ventricle The left ventricle is normal size. The left ventricular systolic function is normal. The left ventric ular ejection fraction is within the normal range. There is normal left ventricular wall thickness. T here is normal LV segmental wall motion. The left ventricular diastolic function is normal. There is no ventricular septal defect visualized. LVEF is 50-55%. Right Ventricle The right ventricle is normal size. The right ventricular systolic function is normal. The RVSP is 30 .7 mmHg. Atria The left atrium size is normal. The right atrium size is normal. The interatrial septum is intact wit h no evidence for an atrial septal defect. Aortic Valve Aortic valve is calcified. Aortic valve leaflets are sclerotic with decreased opening. Number of aor tic valve leaflets could not be assessed. Mild aortic stenosis. Peak aortic valve gradient is 32.6mmH g. Highest mean aortic valve gradient is 17.2mmHg. Calculated JASON by the continuity equation is 1.6cm 2. Moderate aortic regurgitation. Mitral Valve Mild mitral annular calcification. No evidence of mitral valve stenosis. Trace to mild mitral regurgi tation. Tricuspid Valve The tricuspid valve is normal in structure. There is no tricuspid valve stenosis. Trace to mild tricu spid regurgitation. Pulmonic Valve The pulmonary valve is normal in structure. There is no pulmonic valvular stenosis. Trace pulmonic re gurgitation. Great Vessels The aortic root is normal in size. The ascending aorta is severely dilated (4cm). Aortic arch is norm al in caliber. The IVC collapses <50% with inspiration. Pericardium There is no pericardial effusion. 2D Dimensions IVSD d PLAX 1.02 cm M: 0.6-1.2 LV Vol A2C d MOD 124.3 mL LVPW d PLAX 1.01 cm M: 0.6 - 1.2 LV Vol A4C d MOD 138.6 mL LVID d PLAX 5.68 cm M: 4.2 - 5.8 LA vol/ BSA A2C s A-L 34.2 mL/m2 LVDs 3.80 cm M: 2.5 - 4.0 LA vol/ BSA A4C s A-L 29.9 mL/m2 Ao Root d 2.94 cm M: 3.1 - 3.7 LA Vol/ BSA Biplane s A-L 32.2 mL/m2 RA Area A4C 13.70 cm2 LA Area A4C s MOD 20.86 cm2 RA Vol/ BSA A4C s A-L 17.6 mL/m2 LA Area A2C s MOD 22.19 cm2 Ao Asc Diam d 4.01 cm M: 2.6 - 3.4 LV EF A4C MOD 50.2 % LV EF Teichholz 60.8 % LV EF A2C MOD 55.2 % LVEF (Sam's) 53.19 % M: 52 - 72 LV EF Biplane MOD 53.2 % LV Volume 98.98 mL M: 62 - 150 SV 70.71 mL LV Volume Index 48.51 mL/m2 M: 34 - 74 SV Index 34.59 mL/m2 LV Vol Biplane MOD 132.9 mL FS 32.95 % M-Mode TAPSE 2.34 cm (M/F) >1.7 LV Diastology MV E' medial 0.076 (>0.07 m/s) E/A Ratio 0.8 LV E/e MED 11.40 (<14) MV E Vmax 0.86 (0.4-1.3 m/s) MV E' lateral 0.076 (>0.1 m/s) MV A Vmax 1.05 (0.4-1.3 m/s) LV E/e LAT 11.40 (<14) MV E/A Ratio 0.80 MV E/E' medial 11.41 MV E/E' lateral 11.41 Aortic Valve LVOT Area 3.14 cm2 AoV Area Vmax 1.60 cm2 LVOT Vmax 1.46 m/s AoV Area/ BSA (Vmax) 0.78 cm2/m2 LVOT Mean Arvin. 0.96 m/s JASON Mean Arvin. 1.57 cm2 LVOT Peak Grad 8.5 mmHg JASON Mean Arvin. Index 0.77 cm2/m2 LVOT Mean Grad 4.3 mmHg AR DT 2331 msec LVOT VTI 0.343 m AR PHT 676 msec LVOT Diam s 2.00 cm AoV Vmax 2.85 m/s Velocity Ratio 0.51 AoV Mean Arvin. 1.93 m/s AoV Peak Grad 32.6 mmHg LVOT SV 107.78 mL AoV Mean Grad 17.2 mmHg AoV VTI 0.593 m AoV Area VTI 1.82 cm2 AoV Area/ BSA (VTI) 0.89 cm/m2 Mitral Valve MV DT 317 (160-240 msec) MV PHT 92 msec MV Area PHT 2.39 cm2 Pulmonary Valve PV Vmax 0.91 (0.5-1.5 m/s) RVOT Peak Gr. 2.48 mmHg PV Peak Grad 3.3 mmHg RVOT Mean Gr. 1.25 mmHg PV Mean Grad 1.9 mmHg RVOT VTI 0.182 m PV VTI 0.223 m RVOT Vmax 0.79 m/s Tricuspid Valve TR Peak Grad 22.7 mmHg TR Vmax 2.38 m/s RA Pressure 8.00 mmHg RVSP (TR) 30.7 mmHg
== END 2020-06-10 01:06 ==
PROVIDERS: PCP Family Medicine; Visit Provider Internal Medicine Cardiovascular Disease
DX: I35.2 Nonrheumatic aortic (valve) stenosis with insufficiency (principal)
CPT/HCPCS: 93306

== ENCOUNTER 2020-07-23 09:44 | Outpatient (CLI) | payer BC, SELFPAY ==
[2020-07-23 13:07] LABS: CREATININE 0.91 mg/dL (0.70-1.30); Potassium 3.8 mmol/L (3.5-5.1)
== END 2020-07-23 10:04 ==
PROVIDERS: PCP Family Medicine; Visit Provider Family Medicine
DX: I10 Essential (primary) hypertension (principal)
CPT/HCPCS: 36415; 82565; 84132

== ENCOUNTER 2021-05-17 02:04 | Outpatient (CLI) | payer BC, SELFPAY ==
--- NOTE | 2021-05-17 07:00 | DI.US_ITS ---
APPROVED REPORT EXAM: Comprehensive 2D, Doppler, and color-flow Echocardiogram Patient Location: Out-Patient Tank Filler: Melanie Costa RDCS (AE) Indications: Aortic Inusfficiency Other Information Study Quality: Adequate Conclusion Left Ventricle : The left ventricle is normal size. The left ventricular systolic function is normal. The left ventricular ejection fraction is within the normal range. There is normal left ventricular wall thickness. There is normal LV segmental wall motion. The left ventricular diastolic function is normal. LVEF is 57%. Right Ventricle : The right ventricle is normal size. The right ventricular systolic function is norm al. The RVSP is 35 mmHg. Atria : Left atrium is borderline dilated. The right atrium size is normal. Aortic Valve : Aortic valve is calcified. Number of aortic valve leaflets could not be assessed. Mode rate aortic regurgitation. Mild aortic stenosis. Peak aortic valve gradient is 31mmHg. Highest mean a ortic valve gradient is 16.6mmHg. Calculated JASON by the continuity equation is 1.91cm2. Great Vessels : The aortic root is normal in size. The ascending aorta is severely dilated (4.2cm). A ortic arch is normal in caliber. The IVC collapses <50% with inspiration. Wall motion Left Ventricle The left ventricle is normal size. The left ventricular systolic function is normal. The left ventric ular ejection fraction is within the normal range. There is normal left ventricular wall thickness. T here is normal LV segmental wall motion. The left ventricular diastolic function is normal. There is no ventricular septal defect visualized. LVEF is 57%. Right Ventricle The right ventricle is normal size. The right ventricular systolic function is normal. The RVSP is 35 mmHg. Atria Left atrium is borderline dilated. The right atrium size is normal. The interatrial septum is intact with no evidence for an atrial septal defect. Aortic Valve Aortic valve is calcified. Number of aortic valve leaflets could not be assessed. Mild aortic stenosi s. Peak aortic valve gradient is 31mmHg. Highest mean aortic valve gradient is 16.6mmHg. Calculated A VA by the continuity equation is 1.91cm2. Moderate aortic regurgitation. Mitral Valve Mild mitral annular calcification. No evidence of mitral valve stenosis. Trace to mild mitral regurgi tation. Tricuspid Valve The tricuspid valve is normal in structure. There is no tricuspid valve stenosis. Trace tricuspid reg urgitation. Pulmonic Valve The pulmonary valve is normal in structure. There is no pulmonic valvular stenosis. Mild pulmonic reg urgitation. Great Vessels The aortic root is normal in size. The ascending aorta is severely dilated (4.2cm). Aortic arch is no rmal in caliber. The IVC collapses <50% with inspiration. Pericardium There is no pericardial effusion. 2D Dimensions IVSD d PLAX 1.02 cm M: 0.6-1.2 LV Vol A2C d MOD 145.8 mL LVPW d PLAX 1.03 cm M: 0.6 - 1.2 LV Vol A4C d MOD 180.0 mL LVID d PLAX 5.60 cm M: 4.2 - 5.8 LA vol/ BSA A2C s A-L 37.9 mL/m2 LVDs 3.95 cm M: 2.5 - 4.0 LA vol/ BSA A4C s A-L 32.8 mL/m2 Ao Root d 3.14 cm M: 3.1 - 3.7 LA Vol/ BSA Biplane s A-L 35.4 mL/m2 RA Area A4C 11.84 cm2 LA Area A4C s MOD 21.77 cm2 RA Vol/ BSA A4C s A-L 12.3 mL/m2 LA Area A2C s MOD 23.32 cm2 Ao Asc Diam d 4.20 cm M: 2.6 - 3.4 LV EF A4C MOD 56.8 % LV EF Teichholz 55.6 % LV EF A2C MOD 57.7 % LVEF (Sam's) 56.37 % M: 52 - 72 LV EF Biplane MOD 56.4 % LV Volume 121.47 mL M: 62 - 150 SV 90.97 mL LV Volume Index 61.34 mL/m2 M: 34 - 74 SV Index 45.98 mL/m2 LV Vol Biplane MOD 161.4 mL FS 29.30 % M-Mode TAPSE 1.86 cm (M/F) >1.7 LV Diastology MV E' medial 0.081 (>0.07 m/s) E/A Ratio 0.9 LV E/e MED 13.85 (<14) MV E Vmax 1.12 (0.4-1.3 m/s) MV E' lateral 0.065 (>0.1 m/s) MV A Vmax 1.20 (0.4-1.3 m/s) LV E/e LAT 17.40 (<14) MV E/A Ratio 0.91 MV E/E' medial 13.86 MV E/E' lateral 17.42 Aortic Valve LVOT Area 3.39 cm2 AoV Area Vmax 1.91 cm2 LVOT Vmax 1.57 m/s AoV Area/ BSA (Vmax) 0.97 cm2/m2 LVOT Mean Arvin. 1.10 m/s JASON Mean Arvin. 1.96 cm2 LVOT Peak Grad 9.8 mmHg JASON Mean Arvin. Index 0.99 cm2/m2 LVOT Mean Grad 5.6 mmHg AR DT 2269 msec LVOT VTI 0.390 m AR PHT 658 msec LVOT Diam s 2.05 cm AoV Vmax 2.78 m/s Velocity Ratio 0.56 AoV Mean Arvin. 1.91 m/s AoV Peak Grad 30.9 mmHg LVOT SV 132.32 mL AoV Mean Grad 16.6 mmHg AoV VTI 0.624 m AoV Area VTI 2.12 cm2 AoV Area/ BSA (VTI) 1.07 cm/m2 Mitral Valve MV DT 200 (160-240 msec) MV PHT 58 msec MV Area PHT 3.79 cm2 MV VTI 0.572 m MV Area VTI 2.31 (4.0-6.0 cm2) Pulmonary Valve PV Vmax 0.78 (0.5-1.5 m/s) RVOT Peak Gr. 2.04 mmHg PV Peak Grad 2.4 mmHg RVOT Mean Gr. 1.00 mmHg PV Mean Grad 1.4 mmHg RVOT VTI 0.184 m PV VTI 0.195 m RVOT Vmax 0.71 m/s Tricuspid Valve TR Peak Grad 26.8 mmHg TR Vmax 2.59 m/s RA Pressure 8.00 mmHg RVSP (TR) 34.9 mmHg
== END 2021-05-17 02:24 ==
PROVIDERS: PCP Family Medicine; Visit Provider Internal Medicine Cardiovascular Disease
DX: I35.1 Nonrheumatic aortic (valve) insufficiency (principal); I77.810 Thoracic aortic ectasia
CPT/HCPCS: 93306

== ENCOUNTER → 2022-07-12 01:26 | Outpatient (CLI) | payer BC, SELFPAY ==
--- NOTE | 2022-07-12 14:02 | DI.US_ITS ---
APPROVED REPORT EXAM: Comprehensive 2D, Doppler, and color-flow Echocardiogram Patient Location: Out-Patient Marshmallow Machine Operator: Melanie Costa RDCS (AE) Indications: Aortic insufficiency Other Information Study Quality: Adequate Conclusion Normal left ventricular wall thickness and chamber size. Estimated ejection fraction is 60%. Wall m otion is normal Normal right ventricular size and systolic function Both atria are normal in size Aortic valve is sclerotic and trileaflet. There is mild to moderate aortic regurgitation. There is mild aortic stenosis. Peak gradient is 29, mean 17 mmHg. Calculated aortic valve area is 2.2 cm?? Mitral annular calcification with trace mitral regurgitation Normal cuspid valve with trace regurgitation. Estimated right ventricular systolic pressure is 7 mmH g Dilated ascending aorta measuring 4.11 cm Wall motion Left Ventricle The left ventricle is normal size. The left ventricular systolic function is normal. The left ventric ular ejection fraction is within the normal range. There is normal left ventricular wall thickness. T here is normal LV segmental wall motion. There is no ventricular septal defect visualized. LVEF is 59 %. Right Ventricle The right ventricle is normal size. The right ventricular systolic function is normal. The RVSP is 26 .7mmHg. Atria The left atrium size is normal. The right atrium size is normal. The interatrial septum is intact wit h no evidence for an atrial septal defect. Aortic Valve Aortic valve is calcified. Aortic valve is trileaflet. Mild aortic stenosis. Peak aortic valve gradie nt is27.7_mmHg. Highest mean aortic valve gradient is 15.9mmHg. Calculated JASON by the continuity equa tion is 2.2cm2. Mild to moderate aortic regurgitation. Mitral Valve Mild mitral annular calcification. No evidence of mitral valve stenosis. Trace mitral regurgitation. Tricuspid Valve The tricuspid valve is normal in structure. There is no tricuspid valve stenosis. Trace tricuspid reg urgitation. Pulmonic Valve The pulmonary valve is normal in structure. There is no pulmonic valvular stenosis. Trace to mild pul enio regurgitation. Great Vessels The aortic root is normal in size. The ascending aorta is moderately dilated. Aortic arch is normal i n caliber. IVC is normal in size and collapses >50% with inspiration. Pericardium There is no pericardial effusion. 2D Dimensions IVSD d PLAX 0.98 cm M: 0.6-1.2 LV Vol A2C d MOD 160.5 mL LVPW d PLAX 1.02 cm M: 0.6 - 1.2 LV Vol A4C d MOD 148.9 mL LVID d PLAX 5.62 cm M: 4.2 - 5.8 LA vol/ BSA A2C s A-L 38.1 mL/m2 LVDs 3.80 cm M: 2.5 - 4.0 LA vol/ BSA A4C s A-L 29.0 mL/m2 Ao Root d 3.28 cm M: 3.1 - 3.7 LA Vol/ BSA Biplane s A-L 33.5 mL/m2 RA Area A4C 13.50 cm2 LA Area A4C s MOD 19.74 cm2 RA Vol/ BSA A4C s A-L 15.3 mL/m2 LA Area A2C s MOD 22.86 cm2 Ao Asc Diam d 4.11 cm M: 2.6 - 3.4 LV EF A4C MOD 57.0 % LV EF Teichholz 59.4 % LV EF A2C MOD 60.9 % LVEF (Sam's) 59.23 % M: 52 - 72 LV EF Biplane MOD 59.2 % LV Volume 119.40 mL M: 62 - 150 SV 93.22 mL LV Volume Index 61.86 mL/m2 M: 34 - 74 SV Index 48.21 mL/m2 LV Vol Biplane MOD 157.4 mL FS 31.95 % M-Mode TAPSE 2.02 cm (M/F) >1.7 LV Diastology MV E' medial 0.085 (>0.07 m/s) MV E Vmax 1.10 (0.4-1.3 m/s) LV E/e MED 12.95 (<14) MV E' lateral 0.077 (>0.1 m/s) LV E/e LAT 14.35 (<14) MV E/E' medial 12.98 MV E/E' lateral 14.36 Aortic Valve LVOT Area 3.73 cm2 AoV Area Vmax 2.20 cm2 LVOT Vmax 1.55 m/s AoV Area/ BSA (Vmax) 1.14 cm2/m2 LVOT Mean Arvin. 1.08 m/s JASON Mean Arvin. 2.17 cm2 LVOT Peak Grad 9.6 mmHg JASON Mean Arvin. Index 1.12 cm2/m2 LVOT Mean Grad 5.3 mmHg AR DT 2424 msec LVOT VTI 0.369 m AR PHT 703 msec LVOT Diam s 2.15 cm AoV Vmax 2.63 m/s Velocity Ratio 0.58 AoV Mean Arvin. 1.86 m/s AoV Peak Grad 27.7 mmHg LVOT SV 137.63 mL AoV Mean Grad 15.9 mmHg AoV VTI 0.575 m AoV Area VTI 2.39 cm2 AoV Area/ BSA (VTI) 1.24 cm/m2 Mitral Valve MV DT 214 (160-240 msec) MV PHT 62 msec MV Area PHT 3.55 cm2 MV VTI 0.541 m MV Area VTI 2.54 (4.0-6.0 cm2) Pulmonary Valve PV Vmax 0.84 (0.5-1.5 m/s) RVOT Peak Gr. 2.12 mmHg PV Peak Grad 2.9 mmHg RVOT Mean Gr. 1.00 mmHg PV Mean Grad 1.7 mmHg RVOT VTI 0.168 m PV VTI 0.206 m RVOT Vmax 0.73 m/s Tricuspid Valve TR Peak Grad 23.6 mmHg TR Vmax 2.43 m/s RA Pressure 3.00 mmHg RVSP (TR) 26.7 mmHg
== END ==
PROVIDERS: PCP Family Medicine; Visit Provider Internal Medicine Cardiovascular Disease
DX: I35.1 Nonrheumatic aortic (valve) insufficiency (principal)
CPT/HCPCS: 93306

== ENCOUNTER 2022-07-21 08:23 | Outpatient (CLI) | payer BC, SELFPAY ==
--- NOTE | 2022-07-21 08:15 | RT.EKG_ITS ---
APPROVED REPORT Exam: Resting ECG Reason for Exam: AI, HTN Patient Location: O HR:49 bpm ECG Measurements Heart Rate 49 AXIS SD 141 P 12 QRSd 134 QRS -43 QT 462 T -1 QTc 418 Conclusion Sinus bradycardia...rate< 50 LAFB Left ventricular hypertrophy...multiple LVH criteria Borderline T abnormalities, inferior leads...T flat/neg, II III aVF ST elevation, consider anterior injury...ST >0.15mV, V1-V5
== END 2022-07-21 08:24 | disposition home or self-care (01) ==
LOC: DI.CARD 08:24
PROVIDERS: PCP Family Medicine; Visit Provider Internal Medicine Cardiovascular Disease
DX: I10 Essential (primary) hypertension (principal); I35.1 Nonrheumatic aortic (valve) insufficiency; R94.31 Abnormal electrocardiogram [ECG] [EKG]; R00.1 Bradycardia, unspecified
CPT/HCPCS: 93010

== ENCOUNTER 2022-08-30 15:05 | Outpatient (CLI) | payer BC, SELFPAY ==
[2022-08-30 13:40] LABS: Anion Gap 7.2 mmol/L (3-11); BUN 23 mg/dL (7-18); CO2 32.8 mmol/L (21.0-32.0); Calcium 9.4 mg/dL (8.5-10.1); Calculated LDL 106 mg/dL (<100); Chloride 103 mmol/L (98-107); Cholesterol 198 mg/dL (<200); Estimated GFR 84.57 (mL/min/1.73m2); Glucose 162 mg/dL (74-106); HDL Cholesterol 48 mg/dL (40-60); Potassium 3.6 mmol/L (3.5-5.1); Sodium 143 mmol/L (136-145); Triglyceride 224 mg/dL (<150)
== END 2022-08-30 15:06 | disposition home or self-care (01) ==
LOC: LBO 15:05
PROVIDERS: PCP Family Medicine; Visit Provider Family Medicine
DX: E78.5 Hyperlipidemia, unspecified (principal); E87.1 Hypo-osmolality and hyponatremia
CPT/HCPCS: 36415; 80048; 80061

== ENCOUNTER 2022-10-20 14:01 | Emergency (ER) | payer BC, SELFPAY ==
[2022-10-20 14:08] VITALS: BP 178/75; PULSE 57; RESP 18; TEMP 36.5; O2SAT 99
--- NOTE | 2022-10-20 15:02 | ED.GENADUL_ITS ---
Discharge Plan Disposition Patient Disposition: Home Condition: Stable Discharge Details Clinical Impression: Sprain of right shoulder girdle Primary Care Provider: Merrill Hernandez ED Provider: Alan Fuentes Home Meds and New Rx's Prescriptions: Continued aspirin [Aspirin Low-Strength] 81 MG tablet,chewable 1 tab PO DAILY cholecalciferol (vitamin D3) 2,000 UNIT tablet 2,000 unit PO DAILY omega-3 fatty acids-fish oil [Fish Oil] 300-1,000 mg capsule 1 cap PO DAILY Qty: 60 metoprolol succinate 50 mg tablet extended release 24 hr 50 mg PO DAILY Qty: 90 3RF pravastatin 20 mg tablet 20 mg PO DAILY Qty: 90 3RF losartan-hydrochlorothiazide [Hyzaar] 100-25 mg tablet 1 tab PO DAILY Qty: 90 3RF Discharge Instructions Instructions: Shoulder Sprain (ED), Shoulder Pain (ED) Additional Instructions: Apply ice 20 to 30 minutes at a time up to 6 times daily to reduce pain and swelling. May remove sling will at rest or in bed, as well as for bathing. Sling while awake and out of bed until seen by orthopedics for follow-up. You may perform daily range of motion exercises as we discussed. Tylenol and or ibuprofen as needed for pain. The orthopedic referral will be placed today, the office #[id number]. Medical Decision Making 62-year-old male who slipped and fell this morning falling backwards on his right shoulder. There was no loss of consciousness. He denies a headache/neck/back/pelvis pain. He is developed right shoulder pain is worse with movement, improved with rest. He has no numbness, tingling or motor weakness. He is tender when performing Abduction of the humerus and with palpation of the lateral shoulder. He is referred for x-ray which does not show bony injury. Cannot rule out rotator cuff injury, although would suspect contusion as well. Placed in sling, conservative management at home and follow- up with orthopedics for recheck. HPI General Mode of arrival: ambulatory . Date/Time Provider Initiated Documentation: 10/20/22 14:31 . Limitations to Documentation: no limitations . Information obtained by: patient . History of Present Illness 62 year old M presents to the emergency department with the chief complaint of Fall, right shoulder pain, described as mild, Quality is described as dull, and is localized to the right and upper extremity. Patient reports no radiation. Patient started experiencing this hour(s) and it has been constant. Rest improves symptom(s), Movement worsens symptoms . Patient notes denies confusion, chest pain, cough, headaches, nausea/vomiting, shortness of breath, syncope and weakness. Patient did receive the following treatments prior to arrival, none Related Data Home Medications Medication Instructions Recorded Confirmed aspirin 81 mg chewable tablet 1 tab PO DAILY 02/05/13 07/21/22 (Aspirin Low-Strength) cholecalciferol (vitamin D3) 50 2,000 unit PO DAILY 05/09/16 07/21/22 mcg (2,000 unit) tablet omega-3 fatty acids-fish oil 300 1 cap PO DAILY #60 tab-caps 07/23/20 07/21/22 mg-1,000 mg capsule (Fish Oil) metoprolol succinate 50 mg 50 mg PO DAILY #90 tabs 05/31/22 07/21/22 tablet,extended release 24 hr pravastatin 20 mg tablet 20 mg PO DAILY #90 tabs 05/31/22 07/21/22 Hyzaar 100 mg-25 mg tablet 1 tab PO DAILY #90 tabs 08/30/22 (losartan-hydrochlorothiazide) Previous Rx's Medication Instructions Recorded metoprolol succinate 50 mg 50 mg PO DAILY #90 tabs 05/31/22 tablet,extended release 24 hr pravastatin 20 mg tablet 20 mg PO DAILY #90 tabs 05/31/22 Hyzaar 100 mg-25 mg tablet 1 tab PO DAILY #90 tabs 08/30/22 (losartan-hydrochlorothiazide) Allergies Allergy/AdvReac Type Severity Reaction Status Date / Time lisinopril AdvReac Mild COUGH Verified 07/21/22 09:21 doxycycline AdvReac Unknown NAUSEA Verified 07/21/22 09:21 General Stated Complaint: Orthopedic ANGEL: 4 Review of Systems Narrative: 6 systems reviewed and otherwise negative. No loss of consciousness, denies head/neck/chest/lower extremity or hip pain. PFSH All Active Problems (Updated 10/20/22 @ 15:11 by Alan Fuentes MD) Sprain of right shoulder girdle (Acute) Aortic insufficiency (Acute) echo 08/02 echo 06/04 mod/severe AI , aortic root dilation. Repeat echo in 2 yrs (05/2016) Well adult (Acute) Increased BMI (Acute) Non-alcoholic fatty liver disease (Acute 09/02/12) seen on U.S.; elevated LFT's etoh 0-2/day Occult blood in stools (Acute 03/13/13) did not have colonoscopy(refused) White coat syndrome with hypertension (Acute 05/09/16) Medical History (Updated 10/20/22 @ 15:11 by Alan Fuentes MD) Essential hypertension (11/28/13) noncompliance Hypercholesterolemia Family History Mother No problems noted. Father Heart disease Sister No problems noted. Sister No problems noted. Brother No problems noted. Grandfather Heart disease Stroke Grandmother No problems noted. Other Depression Social History Smoking/Tobacco Use Status: Never Second Hand Exposure: Yes Smoking risk assessment performed?: Yes Alcohol Intake: current Alcohol Intake frequency: a few times a week Alcohol type: beer Drug use: Never Substance use type: does not use Caregiver/Support person: No Household members: spouse Housing: house Communication Needs: None Do you need help understanding health information?: Never Pets and animals: Yes Pets and animals: dog(s) Sexually active: Yes Do you think of yourself as: straight/heterosexual Current gender identity: male What is your relationship status?: How often do you talk on the phone with friends or family?: three or more times per week How often do you get together with friends or relatives?: once per week How often do you attend episcopal or pentecostal services?: decline to answer Do you belong to any clubs or organized social groups?: no Panel score (0-1 are the most socially isolated patients): 2 What type of physical activity do you participate in: none Leeann/Congregational: None Special leeann needs: No Seatbelt use: sometimes Helmet use: No Do you feel safe at home: Yes Do you feel safe in your relationship?: Yes Exam Narrative Exam Narrative: GEN: awake, alert, oriented 3. Pleasant, well groomed, interactive. HEAD: Normocephalic, atraumatic ENT: Mucous membranes moist, oropharynx unremarkable, External ear exam unremarkable EYES: PERRL, EOMI NECK: Full ROM, nontender no step-off or deformity CHEST/RESP: Nontender, no respiratory distress EXT: Pelvis stable to rock. Full ROM, no edema, no rash. Right upper extremity pain with humerus abduction. No significant pain with internal and external rotation of the glenohumeral joint. There is no clavicle pain. There is dist al/lateral AC joint pain and pain overlying the scapula posteriorly. Patient is able to demonstrate flexion extension and sensation normally through the elbow and wrist. Neuro: Grossly normal neurologic exam, conversant, interactive. Psych: Speech fluent, thoughts congruent, affect normal Course Vital Signs Vital signs: Vital Signs Temperature 36.5 C 10/20/22 14:08 Pulse 57 L 10/20/22 14:08 Respiratory Rate 18 10/20/22 14:08 Blood Pressure 178/75 H 10/20/22 14:08 Pulse Oximetry 99 10/20/22 14:08 Temperature 36.5 C 10/20/22 14:08 Temperature Source Tympanic 10/20/22 14:08 Pulse 57 L 10/20/22 14:08 Respiratory Rate 18 10/20/22 14:08 Respiratory Effort 10/20/22 14:11 Blood Pressure 178/75 H 10/20/22 14:08 Blood Pressure Position Supine 10/20/22 14:08 Pulse Oximetry 99 10/20/22 14:08 Oxygen Delivery Method Room Air 10/20/22 14:08 Oxygen Flow Rate 0 10/20/22 14:08 Pain Level 6 10/20/22 14:08
--- NOTE | 2022-10-20 15:07 | DI.RAD_ITS ---
Exam(s) XR SHOULDER RT COMPLETE 2+V EXAM: XR SHOULDER RT COMPLETE 2+V CLINICAL HISTORY: fall, pain. TECHNIQUE: 2D digital imaging was performed. Five views. COMPARISON: No exams were available for comparison FINDINGS: BONES: No acute fracture is present. No bony destructive lesion is seen. Degenerative cyst is noted in the inferior glenoid. Minimal spurring at the inferior glenoid. JOINTS: No dislocation present. SOFT TISSUE: Normal. IMPRESSION: Unremarkable radiographs of the right shoulder. DATA REPOSITORY: RADIATION DOSE DELIVERED:
[2022-10-20 15:35] VITALS: BP 138/74; PULSE 49; RESP 16; TEMP 36.3; O2SAT 95
--- NOTE | 2022-10-23 15:12 | NUR.NOTE ---
Nursing Note: Accessed chart for [facility] billing purposes.
--- NOTE | 2022-10-24 11:07 | NUR.NOTE ---
Nursing Note: Asked by Fay Palacios,Care Management to send a Ortho referral to [facility]. A referral was done and faxed.
== END 2022-10-20 15:54 | disposition home or self-care (01) ==
PROVIDERS: Emergency Provider Emergency Medicine; PCP Family Medicine
DX: S43.91XA Sprain of unspecified parts of right shoulder girdle, initial encounter (principal); I10 Essential (primary) hypertension; Z79.82 Long term (current) use of aspirin; W01.0XXA Fall on same level from slipping, tripping and stumbling without subsequent striking against object, initial encounter
CPT/HCPCS: 99283; 73030; 99282

== ENCOUNTER → 2023-07-11 01:14 | Outpatient (CLI) | payer BC, SELFPAY ==
--- NOTE | 2023-07-11 14:54 | DI.US_ITS ---
APPROVED REPORT EXAM: Comprehensive 2D, Doppler, and color-flow Echocardiogram Patient Location: Out-Patient Orthopedically Impaired Teacher: Melanie Costa RDCS (AE) Indications: Aortic Insufficiency Other Information Study Quality: Adequate Conclusion Normal left ventricular wall thickness and chamber size. Ejection fraction is 55 to 60%. Wall motio n is normal Normal right ventricular size and systolic function Both atria are normal in size Aortic valve is mildly calcified. Number of aortic valve leaflets could not be accurately determined . There is mild aortic stenosis, moderate aortic regurgitation. Mean aortic valve gradient is 17 mm Hg Mild mitral annular calcification, mild mitral regurgitation Dilated ascending aorta measuring 3.96 cm Overall the echocardiogram appears similar to 1 from 2021 Wall motion Left Ventricle The left ventricle is normal size. The left ventricular systolic function is normal. The left ventric ular ejection fraction is within the normal range. There is normal left ventricular wall thickness. T here is normal LV segmental wall motion. There is no ventricular septal defect visualized. LVEF is 56 %. Right Ventricle The right ventricle is normal size. The right ventricular systolic function is normal. Atria The left atrium size is normal. The right atrium size is normal. The interatrial septum is intact wit h no evidence for an atrial septal defect. Aortic Valve Aortic valve is calcified.number of leaflets could not be accurately determined Mild aortic stenosis . Peak aortic valve gradient is 45.8mmHg. Highest mean aortic valve gradient is 16.9mmHg. Calculated JASON by the continuity equation is 1.73_cm2. Moderate aortic regurgitation. Mitral Valve Mild mitral annular calcification. No evidence of mitral valve stenosis. Mild mitral regurgitation. Tricuspid Valve The tricuspid valve is normal in structure. There is no tricuspid valve stenosis. Trace to mild tric uspid regurgitation. Unable to assess PA pressure. Pulmonic Valve The pulmonary valve is normal in structure. There is no pulmonic valvular stenosis. Trace pulmonic re gurgitation. Great Vessels The aortic root is normal in size. The ascending aorta is mildly dilated. Aortic arch is normal in ca liber. IVC is normal in size and collapses >50% with inspiration. Pericardium There is no pericardial effusion. 2D Dimensions IVSD d PLAX 1.02 cm M: 0.6-1.2 Ao Root d 3.57 cm M: 3.1 - 3.7 LVPW d PLAX 0.99 cm M: 0.6 - 1.2 Ao Asc Diam d 3.96 cm M: 2.6 - 3.4 LVID d PLAX 5.43 cm M: 4.2 - 5.8 LVDs 3.84 cm M: 2.5 - 4.0 LV EF Teichholz 55.5 % FS 29.23 % LV EDV (Teich) 143.0 mL LV ESV (Teich) 63.6 mL M-Mode TAPSE 2.27 cm (M/F) >1.7 Auto EF LV EDV A4C 174.1 mL LV EDV A2C 120.4 mL LV EDV BP 151.4 mL LV ESV A4C 76.8 mL LV ESV A2C 51.3 mL LV ESV BP 63.4 mL LVEF(%) A4C 55.9 % LVEF(%) A2C 57.3 % LVEF(%) BP 58.1 % LV SV A4C 97.3 ml LV SV A2C 69.0 ml LV SV BP 88.0 ml LV CO A4C 6.2 L/min LV CO A2C 5.3 L/min LV CO BP 5.8 L/min HR A4C 63.49 BPM HR A2C 77.26 BPM LV EDV Index (BP) LA Volume LA Length A4C 6.7 cm LA Length A2C 6.6 cm LA Area A4C s 19.90 cm2 LA Area A2C s 23.35 cm2 LA Vol A4C A-L 50.19 mL LA Vol A2C A-L 70.38 mL LA Vol Biplane A-L 60.0 mL LA Vol/BSA A4C A-L LA Vol/BSA A2C A-L LA Vol/BSA BP A-L 30.6 mL/m2 LA Vol A4C MOD 47.9 mL LA Vol A2C MOD 65.9 mL LA Vol BP MOD 56.6 mL RA Volume RA Area A4C 17.7 cm2 RA ESV A4C (A-L) 55.0mL RA Vol/BSA A4C A-L RA Length A4C 4.8 cm RA ESV A4C (MOD) 53.0mL LV Diastology MV E' medial 0.061 (>0.07 m/s) MV E Vmax 0.80 (0.4-1.3 m/s) MV E/E' MED 13.16 (<14) MV A Vmax 1.00 (0.4-1.3 m/s) E/A Ratio 0.8 Aortic Valve AoV Vmax 2.60 m/s LVOT Vmax 1.37 m/s AoV Peak Grad 45.8 mmHg LVOT Peak Grad 7.6 mmHg AoV Area (Vmax) 1.68 cm2 LVOT VTI 0.347 m AoV VTI 0.636 m LVOT Mean Grad 5.1 mmHg AoV Mean Arvin. 1.99 m/s LVOT SV 110.12 mL AoV Mean Grad 16.9 mmHg LVOT Diam s 2.00 cm AoV Area (VTI) 1.73 cm2 AV Regurg Peak Gr. 64.45 mmHg Velocity Ratio 0.53 AR Decel [place] 1.0m/sec2 AR DT 3833 msec AR PHT 1112 msec AR Vmax 4.02 m/s Mitral Valve MV DT 312 (160-240 msec) Pulmonary Valve PV Vmax 0.91 (0.5-1.5 m/s) RVOT Vmax 0.66 m/s PV Peak Grad 3.3 mmHg RVOT Peak Gr. 1.7 mmHg PV Mean Arvin 0.67 m/s RVOT VTI 0.174 m PV Mean Grad 2.0 mmHg RVOT Mean Gr. 1.1 mmHg Tricuspid Valve TV S' 0.15 m/s
== END ==
PROVIDERS: PCP Family Medicine; Visit Provider Internal Medicine Cardiovascular Disease
DX: I35.1 Nonrheumatic aortic (valve) insufficiency (principal)
CPT/HCPCS: 93306

== ENCOUNTER 2024-07-01 00:59 | Outpatient (CLI) | payer MEDICARE, SELFPAY ==
--- NOTE | 2024-07-01 07:30 | DI.US_ITS ---
APPROVED REPORT EXAM: Comprehensive 2D, Doppler, and color-flow Echocardiogram Patient Location: Out-Patient Career Services Representative: Melanie Costa RDCS (AE) Indications: Aortic stenosis, aortic insufficiency Other Information Study Quality: Adequate Conclusion Normal left ventricular chamber size and wall thickness. Ejection fraction is 60%. Wall motion is n ormal Normal right ventricular size and function Left atrium is mildly dilated. Normal right atrial size Aortic valve is calcified. Unable to assess number of aortic valve leaflets. There is mild to moder ate aortic regurgitation. There is mild to moderate aortic stenosis. Mean gradient is 22 mmHg. Gerard culated aortic valve area is 1.7 cm?? Mild mitral annular calcification, normal mitral leaflets. There is mild mitral regurgitation Ascending aorta measures 4.11 cm Estimated right ventricular systolic pressure is 28 mmHg Wall motion Left Ventricle The left ventricle is normal size. The left ventricular systolic function is normal. The left ventric ular ejection fraction is within the normal range. There is normal left ventricular wall thickness. T here is normal LV segmental wall motion. There is no ventricular septal defect visualized. LVEF is 60 %. Right Ventricle The right ventricle is normal size. The right ventricular systolic function is normal. Atria Left atrium is mildly dilated. The right atrium size is normal. The interatrial septum is intact with no evidence for an atrial septal defect. Aortic Valve Aortic valve is calcified. Number of aortic valve leaflets could not be assessed. Mild to moderate ao rtic stenosis. Highest mean aortic valve gradient is 40.38mmHg. Highest mean aortic valve gradient is 22.27_mmHg. Calculated JASON by the continuity equation is 1.7_cm2. Mild to moderate aortic regurgitat ion. Mitral Valve Mild mitral annular calcification. The mitral valve is normal in structure. No evidence of mitral nathalie ve stenosis. Mild mitral regurgitation. Tricuspid Valve The tricuspid valve is normal in structure. There is no tricuspid valve stenosis. Trace tricuspid reg urgitation. The RVSP is 27.42_ mmHg. Pulmonic Valve The pulmonary valve is normal in structure. There is no pulmonic valvular stenosis. Trace pulmonic re gurgitation. Great Vessels Aortic root is mildly dilated. The ascending aorta is moderately dilated. Aortic arch is normal in c aliber. IVC is normal in size and collapses >50% with inspiration. Pericardium There is no pericardial effusion. 2D Dimensions IVSD d PLAX 1.10 cm M: 0.6-1.2 Ao Root d 4.10 cm M: 3.1 - 3.7 LVPW d PLAX 1.10 cm M: 0.6 - 1.2 Ao Asc Diam d 4.11 cm M: 2.6 - 3.4 LVID d PLAX 5.56 cm M: 4.2 - 5.8 LVDs 3.92 cm M: 2.5 - 4.0 LV EF Teichholz 56.0 % FS 29.56 % LV EDV (Teich) 151.3 mL LV ESV (Teich) 66.7 mL M-Mode TAPSE 2.77 cm (M/F) >1.7 Auto EF LV EDV A4C 180.5 mL LV EDV A2C 209.4 mL LV EDV BP 197.2 mL LV ESV A4C 71.8 mL LV ESV A2C 85.6 mL LV ESV BP 77.3 mL LVEF(%) A4C 60.2 % LVEF(%) A2C 59.1 % LVEF(%) BP 60.8 % LV SV A4C 108.7 ml LV SV A2C 123.7 ml LV SV BP 119.9 ml LV CO A4C 5.5 L/min LV CO A2C 5.6 L/min LV CO BP 5.5 L/min HR A4C 50.84 BPM HR A2C 45.06 BPM LV EDV Index (BP) LA Volume LA Length A4C 6.4 cm LA Length A2C 5.7 cm LA Area A4C s 26.47 cm2 LA Area A2C s 21.51 cm2 LA Vol A4C A-L 93.15 mL LA Vol A2C A-L 69.29 mL LA Vol Biplane A-L 85.2 mL LA Vol/BSA A4C A-L LA Vol/BSA A2C A-L LA Vol/BSA BP A-L 87.9 mL/m2 LA Vol A4C MOD 86.9 mL LA Vol A2C MOD 64.0 mL LA Vol BP MOD 78.4 mL RA Volume RA Area A4C 15.4 cm2 RA ESV A4C (A-L) 41.3mL RA Vol/BSA A4C A-L RA Length A4C 4.8 cm RA ESV A4C (MOD) 39.8mL LV Diastology MV E' medial 0.085 (>0.07 m/s) MV E Vmax 1.13 (0.4-1.3 m/s) MV E/E' MED 13.26 (<14) MV A Vmax 1.20 (0.4-1.3 m/s) MV E' lateral 0.060 (>0.1 m/s) E/A Ratio 0.9 MV E/E' LAT 18.76 (<14) MV E' Average 0.073 m/s MV E/E'(average) 15.54 Aortic Valve AoV Vmax 3.18 m/s LVOT Vmax 1.52 m/s AoV Peak Grad 54.4 mmHg LVOT Peak Grad 9.3 mmHg AoV Area (Vmax) 1.74 cm2 LVOT VTI 0.397 m AoV VTI 0.835 m LVOT Mean Grad 5.7 mmHg AoV Mean Arvin. 2.19 m/s LVOT SV 144.36 mL AoV Mean Grad 22.3 mmHg LVOT Diam s 2.15 cm AoV Area (VTI) 1.73 cm2 AV Regurg Peak Gr. 40.38 mmHg Velocity Ratio 0.48 AR Decel [place] 1.5m/sec2 AR DT 2801 msec AR PHT 812 msec AR Vmax 4.13 m/s Mitral Valve MV DT 171 (160-240 msec) MV Vmax TIPS 1.35 m/s MV Mean Grad 3.4 (<2mmHg) MV VTI 0.649 m Pulmonary Valve PV Vmax 0.84 (0.5-1.5 m/s) RVOT Vmax 0.82 m/s PV Peak Grad 2.8 mmHg RVOT Peak Gr. 2.7 mmHg PV Mean Arvin 0.62 m/s RVOT VTI 0.193 m PV Mean Grad 1.7 mmHg RVOT Mean Gr. 1.4 mmHg Tricuspid Valve RA Pressure 3.00 mmHg TR Vmax 2.47 m/s TV S' 0.20 m/s TR Peak Grad 24.4 mmHg RVSP (TR) 27.4 mmHg
== END 2024-07-01 01:19 ==
PROVIDERS: PCP Family Medicine; Visit Provider Internal Medicine Cardiovascular Disease
DX: I35.1 Nonrheumatic aortic (valve) insufficiency (principal)
CPT/HCPCS: 93306

== ENCOUNTER 2024-07-28 09:46 | Outpatient (CLI) | payer MEDICARE, SELFPAY ==
--- NOTE | 2024-07-28 09:45 | RT.EKG_ITS ---
APPROVED REPORT Exam: Resting ECG Reason for Exam: follow up Patient Location: O HR:48 bpm ECG Measurements Heart Rate 48 AXIS DE 148 P 0 QRSd 130 QRS -41 QT 468 T -7 QTc 419 Conclusion Sinus rhythm...normal P axis, V-rate 50- 99 PVCs LAFB late transition
== END 2024-07-28 09:47 | disposition home or self-care (01) ==
LOC: DI.CARD 09:48
PROVIDERS: PCP Family Medicine; Referring Provider Family Medicine; Visit Provider Internal Medicine Cardiovascular Disease
DX: I50.20 Unspecified systolic (congestive) heart failure (principal)
CPT/HCPCS: 93010

== ENCOUNTER → 2024-07-28 09:46 | Outpatient (BNVA) | payer MEDICARE, SELFPAY | PROVIDERS: PCP Family Medicine; Referring Provider Family Medicine; Visit Provider Internal Medicine Cardiovascular Disease | DX: I35.0 Nonrheumatic aortic (valve) stenosis (principal); I51.7 Cardiomegaly; I44.4 Left anterior fascicular block; I35.1 Nonrheumatic aortic (valve) insufficiency | CPT/HCPCS: 93005; 99213 ==

== ENCOUNTER 2025-02-10 12:16 | Outpatient (CLI) | payer MEDICARE, SELFPAY ==
[2025-02-10 13:16] LABS: Hemoglobin A1C 5.8 % (<5.7)
[2025-02-10 14:56] LABS: Calculated LDL 100 mg/dL (<100); Cholesterol 173 mg/dL (<200); Estimated GFR 83.01 (mL/min/1.73m2); HDL Cholesterol 49 mg/dL (>or=40); Potassium 3.6 mmol/L (3.5-5.1); Triglyceride 120 mg/dL (<150)
[2025-02-10 23:07] LABS: PSA, Screening 1.8 ng/mL (<=4.5)
[2025-02-11 10:17] LABS: HBs Antibody, Quant <3.1 mIU/mL (See Note); Hep B Surface Ab Negative (See Note); Hepatitis B Core Antibody Negative (Negative); Hepatitis B Surface Antigen Negative (Negative)
[2025-02-11 10:53] LABS: Hepatitis C Ab w Rflx HCV PCR Negative (Negative)
[2025-02-11 11:01] LABS: HIV-1/2 Ag & Ab Screen Negative (Negative)
== END 2025-02-10 12:17 | disposition home or self-care (01) ==
LOC: LBO 12:17
PROVIDERS: PCP Family Medicine; Visit Provider Family Medicine
DX: I10 Essential (primary) hypertension (principal); Z11.59 Encounter for screening for other viral diseases; Z00.00 Encounter for general adult medical examination without abnormal findings; Z12.5 Encounter for screening for malignant neoplasm of prostate; E78.5 Hyperlipidemia, unspecified; R73.9 Hyperglycemia, unspecified
CPT/HCPCS: 36415; 80061; 84153; 86704; 86706; 86803; 87340; 87389; 82565; 83036; 84132